=== PATIENT | female | born 2000 | race Caucasian/White ===

== ENCOUNTER 2022-05-22 08:05 | Emergency (ER) | payer OTHER ==
[~2022-05-22] VITALS: Ht 167.6 cm; Wt 81.8 kg
[2022-05-22 11:19] VITALS: BP 110/64
== END 2022-05-22 12:45 | disposition home or self-care (01) ==
LOC: EMS 08:05
DX: F41.9 Anxiety disorder, unspecified (principal)
CPT/HCPCS: 71045; 93005; 99283